=== PATIENT | female | born 1965 | race Caucasian/White ===

== ENCOUNTER 2019-04-11 09:47 | Emergency (ER) | payer BC ==
[2019-04-11] MEDS ORDERED: oxyCODONE/Acetamin 5/325 MG* TAB PO ONE (10:09)
[2019-04-11] MEDS ORDERED: traMADol TAB* 50 MG PO ONE (10:14)
--- NOTE | 2019-04-11 10:14 | ED ---
Upper Extremity Pain - HPI Summary HPI Summary: Pt is a 54 y/o F presenting to the ED with a chief complaint of R-sided shoulder pain initially onset last night. She was going up some steps to the pool when she caught her toe on a step and fell onto her R side. She has tried to treat it with ice intermittently since 0730 this morning, and states her bra strap aggravates it. She also reports intermittent numbness/paresthesia to the R hand. - History of Current Complaint Chief Complaint: EDShouldFaizalavicPaulette Stated Complaint: RT SHOULDER INJURY PER PT Time Seen by Provider: 04/11/19 10:04 Hx Obtained From: Patient Mechanism Of Injury: Fall From A Standing Position Onset/Duration: Started Hours Ago, Still Present Timing: Constant, Lasting Hours Severity Initially: Moderate Severity Currently: Moderate Pain Location: Shoulder - Right Character: Aching Aggravating Factor(s): Other - bra strap Alleviating Factor(s): Nothing Associated Signs & Symptoms: Positive: Numbness/Tingling - Allergies/Home Medications Allergies/Adverse Reactions: Allergies Allergy/AdvReac Type Severity Reaction Status Date / Time SEASONAL Allergy Eyes Uncoded 04/11/19 10:02 Itchy/Swollen/Red/Watery Home Medications: Home Medications Cholecalciferol (Vitamin D3) [D 1000] 1,000 unit PO DAILY 04/11/19 [History Confirmed 04/11/19] Loratadine/Pseudoephedrine [Allergy Relief D-24Hr Tablet] 1 each PO DAILY [History Confirmed 04/11/19] Olmesartan Medoxomil 5 mg PO DAILY 04/11/19 [History Confirmed 04/11/19] PMH/Surg Hx/FS Hx/Imm Hx Previously Healthy: Yes Endocrine/Hematology History: Denies: Hx Anticoagulant Therapy, Hx Diabetes Cardiovascular History: Reports: Hx Hypertension Infectious Disease History: No Infectious Disease History: Denies: Traveled Outside the [place] in Last 30 Days - Family History Known Family History: Negative: Cardiac Disease - Social History Alcohol Use: Rare Hx Substance Use: No Substance Use Type: Reports: None Hx Tobacco Use: No Smoking Status (MU): Never Smoked Tobacco Review of Systems Positive: Myalgia Positive: Paresthesia, Numbness All Other Systems Reviewed And Are Negative: Yes Physical Exam - Summary Physical Exam Summary: Appearance: well appearing, no pain distress Skin: warm, dry, reflects adequate perfusion Head/face: normal Eyes: EOMI, JOHNY ENT: mucous membranes moist Neck: supple, non-tender Respiratory: CTA, breath sounds present Cardiovascular: RRR, pulses symmetrical Abdomen: non-tender, soft Bowel Sounds: present Musculoskeletal: Tenderness at the R acromion and proximal humerus, and with external rotation. Extremities are neurovascularly intact. Neuro: normal, sensory motor intact, A&Ox3 Triage Information Reviewed: Yes Vital Signs On Initial Exam: Initial Vitals Temp Pulse Resp BP Pulse Ox 99.0 F 69 15 154/85 97 04/11/19 10:00 04/11/19 10:00 04/11/19 10:00 04/11/19 10:00 04/11/19 10:00 Vital Signs Reviewed: Yes Procedures - Procedure Summary Procedure Summary: Right Upper Extremity Sling: Pt placed in sling. She responded well to the pain medication, and her neurovascular exam before and after sling placement is normal. - Splinting Right Upper Extremity Location: R shoulder Diagnostics - Vital Signs Vital Signs Temp Pulse Resp BP Pulse Ox 04/11/19 10:00 99.0 F 69 15 154/85 97 - Laboratory Lab Statement: Any lab studies that have been ordered have been reviewed, and results considered in the medical decision making process. - Radiology Shoulder XR Radiology Interpretation Completed By: Radiologist Summary of Radiographic Findings: 1. OSTEOPENIA. 2. OSTEOARTHRITIS. 3. NO ACUTE OSSEOUS INJURY. IF SYMPTOMS PERSIST, RECOMMEND REPEAT IMAGING. ED physician has reviewed this report. Course/Dx - Course Course Of Treatment: X-rays are negative. Neurovascular intact. Sling placed. Follow-up in one week with sore throat/primary for repeat x-ray if still having pain. - Diagnoses Differential Diagnosis/HQI/PQRI: Positive: Contusion, Fracture (Closed), Strain , Sprain Provider Diagnoses: Contusion of right shoulder, Sprain of right shoulder Discharge - Sign-Out/Discharge Documenting (check all that apply): Patient Departure Patient Received Moderate/Deep Sedation with Procedure: No - Discharge Plan Condition: Improved Disposition: HOME Prescriptions: traMADol TAB* [Ultram*] 50 mg PO Q8HR #12 tab MDD 3 Patient Education Materials: Shoulder Sprain (ED) Forms: *Work Release Referrals: Tonja Ivan MD [Primary Care Provider] - Ana Higginbotham MD [Medical Doctor] - Additional Instructions: Ice, sling for comfort, range of motion exercises every hour. Tylenol for baseline pain. Call to schedule follow-up with your doctor and/or the orthopedic surgeon. Return if worse, new symptoms or other concerns. - Billing Disposition and Condition Condition: IMPROVED Disposition: Home - Attestation Statements Document Initiated by Sakshiiberic: Yes Documenting Scribe: Lita Mercado Provider For Whom Kalpana is Documenting (Include Credential): Yevgeniy Espino MD. Scribe Attestation: Lita Harris, scribed for Yevgeniy Espino MD. on 04/11/19 at 1152. Scribe Documentation Reviewed: Yes Provider Attestation: The documentation as recorded by the Lita call accurately reflects the service I personally performed and the decisions made by , Yevgeniy Espino MD. Status of Scribe Document: Viewed
[2019-04-11 11:16] VITALS: BP 128/80
== END 2019-04-11 11:15 | disposition home or self-care (01) ==
LOC: ED 09:47
DX: S40.011A Contusion of right shoulder, initial encounter (principal); S43.401A Unspecified sprain of right shoulder joint, initial encounter; W10.9XXA Fall (on) (from) unspecified stairs and steps, initial encounter; Y92.34 Swimming pool (public) as the place of occurrence of the external cause; M85.811 Other specified disorders of bone density and structure, right shoulder; M19.011 Primary osteoarthritis, right shoulder; I10 Essential (primary) hypertension
CPT/HCPCS: 99282; A9270-GY